=== PATIENT | male | born 1995 | race Caucasian/White ===

== ENCOUNTER 2018-09-27 17:41 | Emergency (ER) | payer OTHER ==
[2018-09-27 17:51] VITALS: BP 129/79; PULSE 69; TEMP 98.2; BMI 23.7
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
== END 2018-09-27 18:05 | disposition home or self-care (01) ==
LOC: JERFT 17:41
DX: Z77.21 Contact with and (suspected) exposure to potentially hazardous body fluids (principal)
CPT/HCPCS: 99281-25

== ENCOUNTER 2019-10-04 21:10 | Emergency (ER) | payer OTHER ==
[2019-10-04 22:16] VITALS: BP 134/85; PULSE 85; TEMP 98.5; BMI 23.7
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
== END 2019-10-04 22:31 | disposition home or self-care (01) ==
LOC: FER 21:10
DX: S93.402A Sprain of unspecified ligament of left ankle, initial encounter (principal); Z77.21 Contact with and (suspected) exposure to potentially hazardous body fluids
CPT/HCPCS: 99283-25

== ENCOUNTER 2021-08-17 05:11 | Emergency (ER) | payer OTHER ==
[2021-08-17] MEDS ORDERED: ACETAMINOPHEN 500 MG TABLET (FP) PO ONE (05:27)
[2021-08-17 05:28] VITALS: BP 118/73; PULSE 73; TEMP 98.5; BMI 23.7
[2021-08-17] MEDS ORDERED: ACETAMINOPHEN 325 MG TABLET (FP) ONE (05:35)
== END 2021-08-17 06:15 | disposition home or self-care (01) ==
LOC: JER 05:11
DX: M25.562 Pain in left knee (principal)
CPT/HCPCS: 99283-25